=== PATIENT | male | born 2000 | race Two or more races ===

== ENCOUNTER 2018-02-26 10:04 | Emergency (ER) | payer SELFPAY ==
[~2018-02-26] VITALS: Ht 170.2 cm; Wt 86.2 kg
[2018-02-26 10:30] VITALS: BP 125/74
== END 2018-02-26 11:12 | disposition home or self-care (01) ==
LOC: ER 10:14
DX: M25.511 Pain in right shoulder (principal); Z96.611 Presence of right artificial shoulder joint